=== PATIENT | male | born 1950 | race African-American/Black ===

== ENCOUNTER 2018-07-27 21:16 | Emergency (ER) | payer OTHER, MEDICARE, MEDICAID ==
[~2018-07-27] VITALS: Ht 170.2 cm; Wt 75.0 kg
[2018-07-27] MEDS ORDERED: KETOROLAC 60MG/2ML VIAL IM ONE (23:30)
[2018-07-28 01:00] VITALS: BP 161/91
== END 2018-07-28 01:43 | disposition home or self-care (01) ==
LOC: ER 21:16
DX: S63.501A Unspecified sprain of right wrist, initial encounter (principal); W01.0XXA Fall on same level from slipping, tripping and stumbling without subsequent striking against object, initial encounter; Y93.89 Activity, other specified; Y92.89 Other specified places as the place of occurrence of the external cause; Y99.8 Other external cause status
CPT/HCPCS: 29125; 73110; 96372; 99283; J1885; A4565